=== PATIENT | female | born 1960 | race Caucasian/White ===

== ENCOUNTER 2022-06-24 08:26 | Emergency (ER) | payer MEDICARE ==
[~2022-06-24] VITALS: Ht 172 cm; Wt 55.0 kg
--- NOTE | 2022-06-24 08:34 | ED General ---
General Stated Complaint: HEAD/THROAT/CHEST PAIN History of Present Illness Date Seen by Provider: Jun 24, 2022 Time Seen by Provider: 20:30 Initial Comments 62-year-old female with PMH of PTSD/asthma, is here with complaints of sore throat, sinus pressure, right-sided ear pain, cough, which has been going on for the past 2 to 3 weeks. Patient has not seen her PCP and has not been put on any antibiotics. Patient has not had any sick contacts or strep throat contacts. Denies SOB, chest pain, fever, palpitations, abdominal pain, diarrhea. Allergies and Home Medications Allergies Coded Allergies: latex (Verified Allergy, Intermediate, 06/24/22) Uncoded Allergies: PENICILLIN (Allergy, Mild, 06/24/22) SULFA (Allergy, Mild, 06/24/22) Patient Home Medication List Home Medication List Reviewed: Yes Review of Systems Review of Systems Constitutional: no symptoms reported EENTM: ear pain, throat pain Respiratory: cough Cardiovascular: no symptoms reported Gastrointestinal: no symptoms reported Genitourinary: no symptoms reported Musculoskeletal: no symptoms reported Skin: no symptoms reported Psychiatric/Neurological: No Symptoms Reported Hematologic/Lymphatic: No Symptoms Reported Immunological/Allergic: no symptoms reported Physical Exam Vital Signs Vital Signs - First Documented 06/24/22 08:39 Temp 36.2 Pulse 83 Resp 18 B/P (MAP) 124/58 (80) Pulse Ox 99 Capillary Refill : Height, Weight, BMI Height: '" Weight: lbs. oz. kg; BMI Method: General Appearance: No Apparent Distress, WD/WN, Anxious HEENT: PERRL/EOMI, TMs Normal (TM is normal bilaterally), Normal ENT Inspection, Pharynx Normal (Tonsils are nonenlarged, no exudates, no pharyngeal erythema), Moist Mucous Membranes Neck: Full Range of Motion, Normal Inspection, Non Tender, Supple, Lympha denopathy (R) (1 mobile, nontender cervical lymph node palpated on the right side) Respiratory: Chest Non Tender, Lungs Clear, No Accessory Muscle Use, No Respiratory Distress, Rhonci (Mild rhonchi present bilaterally at the bases) Cardiovascular: Regular Rate, Rhythm, No Edema Gastrointestinal: Normal Bowel Sounds, Non Tender, Soft Back: Normal Inspection, No CVA Tenderness Extremity: Normal Range of Motion Neurologic/Psychiatric: Alert, Oriented x3 Skin: Normal Color Progress/Results/Core Measures Suspected Sepsis SIRS Temperature: Pulse: Respiratory Rate: Blood Pressure / Mean: Results/Orders Lab Results Laboratory Tests Test 06/24/22 08:11 Range/Units Influenza Type A (RT-PCR) Not Detected Not Detecte Influenza Type B (RT-PCR) Not Detected Not Detecte SARS-CoV-2 RNA (RT-PCR) Not Detected Not Detecte Group A Streptococcus Screen NEGATIVE NEGATIVE My Orders Orders - TIFFANI MACKENZIE MD Covid 19 Inhouse Test (06/24/22 08:34) Influenza A And B By Pcr (06/24/22 08:34) Rapid Strep A Screen (06/24/22 08:34) Chest 1 View Ap/Pa Only (06/24/22 08:44) Vital Signs/I&O 06/24/22 08:39 Temp 36.2 Pulse 83 Resp 18 B/P (MAP) 124/58 (80) Pulse Ox 99 Capillary Refill : Progress Note : Progress Note 1. CHRONIC URI WITH SINUSITIS: - CXR: normal - COVID Test/ Rapid Flu Test/ Rapid Strep test:negative - Since symptoms going on for 3 weeks, will give Azithromycin prescription: 500mg daily for 3 days - Follow up with PCP within 7 days -The patient was seen in the ED, and treated appropriately to presentation at a specific point in time. Patient is informed that there is a possibility that disease and illness can evolve and change in acuity rapidly or slowly after patient is discharged from the ER. Precautionary advice given to the patient for immediate return to ER if symptoms worsen or do not resolve, and to seek emergency care sooner rather than later. Pt also advised on the importance of PCP follow up and compliance with management and follow up plan with PCP and/or specialist, as this is part of the management plan. Pt verbally expressed understanding. Diagnostic Imaging Diagonstic Imaging: Xray Plain Films/CT/US/NM/MRI: chest Comments [facility]. [place], [place] NAME: MARGO RHODES [facility] REC#: [id number] PT STATUS: REG ER : 1960 PHYSICIAN: TIFFANI MACKENZIE MD ADMIT DATE: 06/24/22/ER FS Draft Date of Exam:06/24/22 CHEST 1 VIEW AP/PA ONLY PATIENT HISTORY: cough. TECHNIQUE: Single frontal view of the chest. COMPARISON: None FINDINGS: The lung volumes are normal. No focal consolidation is seen. No large pleural effusion or pneumothorax is seen. The cardiomediastinal silhouette is normal in size and contour. No acute osseous abnormality is seen. IMPRESSION: No acute pulmonary abnormality seen. Dictated on workstation # [id number] Dict: 06/24/22 0859 Trans: 06/24/22 0902 [facility] [id number] Interpreted by: HAN HAM MD Electronically signed by: Departure Impression Primary Impression: Upper respiratory infection Qualified Codes: J06.9 - Acute upper respiratory infection, unspecified Additional Impression: Chronic sinusitis Qualified Codes: J32.1 - Chronic frontal sinusitis Disposition: 01 HOME, SELF-CARE Condition: Stable Departure-Patient Inst. Referrals: NO,LOCAL PHYSICIAN (PCP/Family) Primary Care Physician Patient Instructions: Chronic Sinusitis, Upper Respiratory Infection ED Add. Discharge Instructions: - Azithromycin prescription: 500mg daily for 3 days - Follow up with PCP within 7 days - Patient is informed that there is a possibility that disease and illness can evolve and change in acuity rapidly or slowly after patient is discharged from the ER. Precautionary advice given to the patient for immediate return to ER if symptoms worsen or do not resolve, and to seek emergency care sooner rather than later. Pt also advised on the importance of PCP follow up and compliance with management and follow up plan with PCP and/or specialist, as this is part of the management plan. Scripts Azithromycin (Azithromycin) 500 Mg Tablet 500 MG PO DAILY for 3 Days, #3 TAB Prov: TIFFANI MACKENZIE MD 06/24/22 TIFFANI MACKENZIE MD Jun 24, 2022 08:34
[2022-06-24 08:39] VITALS: BP 124/58
--- NOTE | 2022-06-24 09:02 | Diagnostic Imaging Report ---
PATIENT HISTORY: cough. TECHNIQUE: Single frontal view of the chest. COMPARISON: None FINDINGS: The lung volumes are normal. No focal consolidation is seen. No large pleural effusion or pneumothorax is seen. The cardiomediastinal silhouette is normal in size and contour. No acute osseous abnormality is seen. IMPRESSION: No acute pulmonary abnormality seen. Dictated by: Dictated on workstation # [id number]
[2022-06-24] MEDS ORDERED: AZIT500T9 PO (09:20)
== END 2022-06-24 09:40 | disposition home or self-care (01) ==
LOC: ER FS 08:28
DX: J06.9 Acute upper respiratory infection, unspecified (principal); J32.9 Chronic sinusitis, unspecified; Z91.040 Latex allergy status; Z88.0 Allergy status to penicillin; Z20.822 Contact with and (suspected) exposure to COVID-19; Z28.310 Unvaccinated for COVID-19
CPT/HCPCS: 71045; 87430; 87636